=== PATIENT | male | born 1980 | race Caucasian/White ===

== ENCOUNTER 2019-06-13 00:14 | Emergency (ER) | payer SELFPAY ==
[2019-06-13 00:55] LABS: Protime INR 0.96
[2019-06-13 00:56] LABS: Absolute Lymphocytes (CBC) 1.8 K/uL (0.7-4.9); Basophils % 0.3 % (0-1.3); Hematocrit 50.1 % (39.6-49.0); Lymphocytes % 17.7 % (15.3-44.8); MPV 7.6 fL (7.6-11.3)
[2019-06-13 01:12] LABS: ALT/SGPT 34 U/L (12-78); AST/SGOT 25 U/L (15-37); Albumin 4.1 g/dL (3.4-5.0); Alkaline Phosphatase 93 U/L (45-117); BUN Blood Urea Nitrogen 7 mg/dL (7-18); Bicarbonate 25 mmol/L (21-32); Bilirubin Direct 0.2 mg/dL (0-0.2); Bilirubin Total 0.5 mg/dL (0.2-1.0); Glucose Level 98 mg/dL (74-106); Magnesium 2.1 mg/dL (1.8-2.4); NT PRO-BNP 20 pg/mL (<125); Potassium 3.5 mmol/L (3.5-5.1); Protein, Total 8.2 g/dL (6.4-8.2); Sodium Level 138 mmol/L (136-145); Troponin (Emerg Dept Use Only) < 0.02 ng/mL (0.0-0.045)
[2019-06-13] MEDS ORDERED: KETOROLAC 30 MG/ML INJ ONE (01:24)
[2019-06-13 02:36] LABS: Barbiturates NEGATIVE (NEGATIVE); Benzodiazepines NEGATIVE (NEGATIVE); Cocaine NEGATIVE (NEGATIVE); METHAMPHETAM POSITIVE (NEGATIVE); Methadone NEGATIVE (NEGATIVE); Opiates NEGATIVE (NEGATIVE); Phencyclidine NEGATIVE (NEGATIVE); THC Cannibis NEGATIVE (NEGATIVE)
[2019-06-13 03:46] LABS: Urine Blood NEGATIVE (NEG); Urine Glucose NEGATIVE (NEG); Urine Protein NEGATIVE (NEG); Urine Specific Gravity 1.015 (1.005-1.030)
--- NOTE | 2019-06-13 04:40 | ER ---
Nurse's Notes [facility] Name: Rico Spain Sr Age: 39 yrs Sex: Male : 1980 Arrival Date: 06/13/2019 Time: 00:15 Bed 18 Private MD: Diagnosis: Other chest pain Presentation: 06/12 00:16 Chief complaint: Patient states: Reports CP and SOB for the past 24 hours. States "I ea feel like it might be my anxiety". Coronavirus screen: The patient has NOT traveled to a country currently being monitored by the [facility] within the last 14 days. Ebola Screen: No symptoms or risks identified at this time. Initial Sepsis Screen: Does the patient meet any 2 criteria? HR > 90 bpm. Does the patient have a suspected source of infection? No. Patient's initial sepsis screen is negative. Risk Assessment: Do you want to hurt yourself or someone else? Patient reports no desire to harm self or others. 00:16 Method Of Arrival: EMS: [facility] ea 00:16 Acuity: CONNOR 3 ea Triage Assessment: 00:50 General: Appears in no apparent distress. Behavior is anxious. Pain: Complains of pain ea in chest. Neuro: Level of Consciousness is awake, alert, obeys commands, Oriented to person, place, time, situation. Cardiovascular: Patient's skin is warm and dry. Respiratory: Airway is patent Respiratory effort is even, unlabored, Respiratory pattern is regular, symmetrical. Derm: Skin is pink, warm \\T\\ dry. Historical: - Home Meds: 00:48 Wellbutrin 100 mg Oral tab 1 tab 3 times per day [Active]; ea - PMHx: 00:48 Hypertension; Anxiety; ADD/ADHD; ea - PSHx: 00:48 Hernia repair; pins and plate in right clavicle; ea - Immunization history:: Adult Immunizations up to date. - Social history:: Smoking status: Patient reports the use of cigarette tobacco products, smokes one-half pack cigarettes per day. Screenin:29 Abuse screen: Denies threats or abuse. Nutritional screening: No deficits noted. ea Tuberculosis screening: No symptoms or risk factors identified. Fall Risk None identified. Assessment: 00:52 Reassessment: see triage assessment. ea 01:00 Reassessment: Patient and/or family updated on plan of care and expected duration. Pain ea level reassessed. Patient is alert, oriented x 3, equal unlabored respirations, skin warm/dry/pink. 02:28 Reassessment: Patient and/or family updated on plan of care and expected duration. Pain ea level reassessed. Patient is alert, oriented x 3, equal unlabored respirations, skin warm/dry/pink. 03:30 Reassessment: Patient and/or family updated on plan of care and expected duration. Pain ea level reassessed. Patient is alert, oriented x 3, equal unlabored respirations, skin warm/dry/pink. 04:37 Reassessment: Patient and/or family updated on plan of care and expected duration. Pain ea level reassessed. Patient is alert, oriented x 3, equal unlabored respirations, skin warm/dry/pink. Vital Signs: 00:16 BP 131 / 89 LA Sitting (auto/reg); Pulse 101 MON; Pulse Ox 100% on R/A; Pain 5/10; mb4 00:51 Temp 97.8; ea 00:51 Weight 77.11 kg; Height 5 ft. 7 in. (170.18 cm); ea 01:15 BP 134 / 78; Pulse 96; Resp 17; Pulse Ox 99% on R/A; ea 02:15 BP 119 / 85; Pulse 87; Resp 16; Pulse Ox 99% on R/A; ea 03:30 BP 127 / 90; Pulse 74; Resp 18; Pulse Ox 98% on R/A; ea 04:41 BP 123 / 74; Pulse 73; Resp 18; Pulse Ox 98% ; ea 00:51 Body Mass Index 26.63 (77.11 kg, 170.18 cm) ea ED Course: 00:15 Patient arrived in ED. cf2 00:15 Bed in low position. Call light in reach. Side rails up X 1. warpman on. Pulse mb4 ox on. NIBP on. 00:19 Patient has correct armband on for positive identification. mb4 00:20 Gregory Escobar MD is Attending Physician. tw4 00:31 Triage completed. ea 00:40 Inserted saline lock: 20 gauge in right antecubital area, using aseptic technique. ea Blood collected. 00:49 Arm band placed on right wrist. Patient placed in an exam room, on a stretcher, on ea pulse oximetry. EKG completed in triage. Results shown to . 00:49 Patient maintains SpO2 saturation greater than 95% on room air. ea 01:18 Elaine Leon, RN is Primary Nurse. ea 02:32 No provider procedures requiring assistance completed. ea 05:00 IV discontinued, intact, bleeding controlled, No redness/swelling at site. Pressure ea dressing applied. 07:19 XRAY Chest (1 view) In Process Unspecified. EDMS Administered Medications: 01:23 Drug: TORadol 30 mg Route: IVP; Site: right antecubital; ea 01:57 Follow up: Response: No adverse reaction ea Outcome: 04:39 Discharge ordered by MD. greer 05:00 Discharged to home ambulatory. ea 05:00 Condition: stable 05:00 Discharge instructions given to patient, Instructed on discharge instructions, follow up and referral plans. Demonstrated understanding of instructions, follow-up care. 05:18 Patient left the ED. ea Signatures: Dispatcher [employer] EDElaine Jara RN RN ea Wadley, Terrence, MD MD tw4 Karol Black 4 Monique Lincoln cf2 Corrections: (The following items were deleted from the chart) 05:27 05:00 Discharge instructions given to patient, ea marlene
--- NOTE | 2019-06-13 04:40 | EDPHYS ---
Physician Documentation [facility] Name: Rico Spain Sr Age: 39 yrs Sex: Male : 1980 Arrival Date: 06/13/2019 Time: 00:15 Bed 18 Private MD: ED Physician Gregory Escobar HPI: 06/12 01:21 This 39 yrs old Male presents to ER via EMS with complaints of Chest Pain. tw4 01:21 The patient or guardian reports chest pain that is located primarily in the anterior tw4 chest wall, right. Onset: just prior to arrival, 2 hour(s) ago. The pain does not radiate. Associated signs and symptoms: The patient has no apparent associated signs or symptoms. The chest pain is described as dull. Duration: The patient or guardian reports a single episode. Severity of pain: At its worst the pain was mild in the emergency department the pain is unchanged. The patient has not experienced similar symptoms in the past. Historical: - Home Meds: 00:48 Wellbutrin 100 mg Oral tab 1 tab 3 times per day [Active]; ea - PMHx: 00:48 Hypertension; Anxiety; ADD/ADHD; ea - PSHx: 00:48 Hernia repair; pins and plate in right clavicle; ea - Immunization history:: Adult Immunizations up to date. - Social history:: Smoking status: Patient reports the use of cigarette tobacco products, smokes one-half pack cigarettes per day. ROS: 01:21 Constitutional: Negative for fever, chills, and weight loss, Eyes: Negative for injury, tw4 pain, redness, and discharge, Neck: Negative for injury, pain, and swelling, Abdomen/GI: Negative for abdominal pain, nausea, vomiting, diarrhea, and constipation, Back: Negative for injury and pain, MS/Extremity: Negative for injury and deformity, Skin: Negative for injury, rash, and discoloration, Neuro: Negative for headache, weakness, numbness, tingling, and seizure. 01:21 Cardiovascular: Positive for chest pain, Negative for edema, orthopnea, palpitations, paroxysmal nocturnal dyspnea. Exam: 01:21 Constitutional: This is a well developed, well nourished patient who is awake, alert, tw4 and in no acute distress. Head/Face: Normocephalic, atraumatic. Chest/axilla: Normal chest wall appearance and motion. Nontender with no deformity. No lesions are appreciated. Cardiovascular: Regular rate and rhythm with a normal S1 and S2. No gallops, murmurs, or rubs. Normal PMI, no JVD. No pulse deficits. Respiratory: Lungs have equal breath sounds bilaterally, clear to auscultation and percussion. No rales, rhonchi or wheezes noted. No increased work of breathing, no retractions or nasal flaring. Abdomen/GI: Soft, non-tender, with normal bowel sounds. No distension or tympany. No guarding or rebound. No evidence of tenderness throughout. Back: No spinal tenderness. No costovertebral tenderness. Full range of motion. MS/ Extremity: Pulses equal, no cyanosis. Neurovascular intact. Full, normal range of motion. Neuro: Awake and alert, GCS 15, oriented to person, place, time, and situation. Cranial nerves II-XII grossly intact. Motor strength 5/5 in all extremities. Sensory grossly intact. Cerebellar exam normal. Normal gait. Vital Signs: 00:16 BP 131 / 89 LA Sitting (auto/reg); Pulse 101 MON; Pulse Ox 100% on R/A; Pain 5/10; mb4 00:51 Temp 97.8; ea 00:51 Weight 77.11 kg; Height 5 ft. 7 in. (170.18 cm); ea 01:15 BP 134 / 78; Pulse 96; Resp 17; Pulse Ox 99% on R/A; ea 02:15 BP 119 / 85; Pulse 87; Resp 16; Pulse Ox 99% on R/A; ea 03:30 BP 127 / 90; Pulse 74; Resp 18; Pulse Ox 98% on R/A; ea 04:41 BP 123 / 74; Pulse 73; Resp 18; Pulse Ox 98% ; ea 00:51 Body Mass Index 26.63 (77.11 kg, 170.18 cm) ea MDM: 00:21 Patient medically screened. 06/12 00:21 Order name: Basic Metabolic Panel; Complete Time: 02:32 06/12 02:33 Interpretation: Within normal limits. 16 00:21 Order name: CBC with Diff; Complete Time: 02:32 03 02:33 Interpretation: Normal except: HCT 50.1; MCV 92.8; HUI% 75.3. 06/12 00:21 Order name: LFT's; Complete Time: 02:32 06/12 02:33 Interpretation: Normal except: GLOB 4.1; A/G 1.0. 06/12 00:21 Order name: Magnesium; Complete Time: 02:32 06/12 02:33 Interpretation: Within normal limits: MG 2.1. 06/12 00:21 Order name: NT PRO-BNP; Complete Time: 02:32 06/12 02:33 Interpretation: Within normal limits: NT PRO-BNP 20. 06/12 00:21 Order name: PT-INR; Complete Time: 02:32 06/12 02:33 Interpretation: Within normal limits: PT 11.4. 06/12 00:21 Order name: Troponin (emerg Dept Use Only); Complete Time: 02:32 06/12 02:33 Interpretation: Within normal limits: TROPED < 0.02. 06/12 00:21 Order name: XRAY Chest (1 view) 06/12 00:21 Order name: EKG; Complete Time: 00:23 06/12 00:21 Order name: Cardiac monitoring; Complete Time: 01:34 06/12 00:21 Order name: Urine Drug Screen; Complete Time: 02:49 06/12 02:49 Interpretation: Abnormal: METHAMPHETAMINE POSITIVE. 06/12 02:09 Order name: Urine Dipstick--Ancillary (enter results) 2 06/12 03:02 Order name: Troponin (emerg Dept Use Only) 06/12 00:21 Order name: EKG - Nurse/Tech; Complete Time: 02:23 06/12 00:21 Order name: IV Saline Lock; Complete Time: 02:23 06/12 00:21 Order name: Labs collected and sent; Complete Time: 02:23 06/12 00:21 Order name: O2 Per Protocol; Complete Time: 02:24 06/12 00:21 Order name: O2 Sat Monitoring; Complete Time: 02:24 4 EC:34 Rate is 91 beats/min. Rhythm is regular. QRS [place] is Normal. TX interval is normal. QRS tw4 interval is normal. QT interval is normal. No Q waves. T waves are Inverted in lead V6. No ST changes noted. Clinical impression: NSR w/ Non-specific ST/T Changes. Interpreted by me. Administered Medications: 01:23 Drug: TORadol 30 mg Route: IVP; Site: right antecubital; ea 01:57 Follow up: Response: No adverse reaction ea Disposition: 06/13/19 04:39 Discharged to Home. Impression: Other chest pain. - Condition is Stable. - Discharge Instructions: Nonspecific Chest Pain. - Medication Reconciliation Form, Thank You Letter, Antibiotic Education, Prescription Opioid Use form. - Follow up: Private Physician; When: Upon discharge from the Emergency Department; Reason: Recheck today's complaints, Continuance of care, Re-evaluation by your physician. - Problem is new. - Symptoms have improved. Signatures: Dispatcher [employer] Elaine De Los Santos RN RN ea Wadley, Terrence, MD MD tw4 Corrections: (The following items were deleted from the chart) 05:18 04:39 06/13/2019 04:39 Discharged to Home. Impression: Other chest pain. Condition is ea Stable. Forms are Medication Reconciliation Form, Thank You Letter, Antibiotic Education, Prescription Opioid Use. Follow up: Private Physician; When: Upon discharge from the Emergency Department; Reason: Recheck today's complaints, Continuance of care, Re-evaluation by your physician. Problem is new. Symptoms have improved. tw4
[2019-06-13 05:28] VITALS: TEMP 97.8
[2019-06-13 05:32] VITALS: O2SAT 98
[2019-06-13 05:33] VITALS: BP 123/74
--- NOTE | 2019-06-13 08:36 | RAD REPORT ---
EXAM DESCRIPTION: RAD - Chest Single View - 06/13/2019 7:18 am CLINICAL HISTORY: CHEST PAIN Chest pain. COMPARISON: Chest Single View dated 11/26/2015; ABDOMEN 1 VIEW KUB dated 08/19/2011; CHEST PA AND LAT 2 VIEW dated 08/19/2011; CHEST PA AND LAT 2 VIEW dated 06/21/2007 FINDINGS: Portable technique limits examination quality. The lungs are grossly clear. The heart is normal in size. Hardware is present right clavicle. IMPRESSION: No acute intrathoracic process suspected.
--- NOTE | 2019-06-13 09:14 | EKG ---
Test Date: 2019-06-13 Test Time: 00:33:43 Barrel Roller: SHARONDA MEASUREMENT RESULTS: Intervals: Rate: 91 NM: 174 QRSD: 90 QT: 350 QTc: 430 Cove: P: 64 NM: 174 QRS: 77 T: 56 INTERPRETIVE STATEMENTS: Normal sinus rhythm Nonspecific T wave abnormality Abnormal ECG Compared to ECG 11/26/2015 18:41:25 T-wave abnormality now present Sinus arrhythmia no longer present Electronically Signed On 06-13-19 09:13:51 CDT by Jose Ruiz
== END 2019-06-13 05:18 | disposition home or self-care (01) ==
LOC: ER 00:14
DX: R07.89 Other chest pain (principal); I10 Essential (primary) hypertension; F41.9 Anxiety disorder, unspecified; F17.210 Nicotine dependence, cigarettes, uncomplicated
CPT/HCPCS: 36415; 71045; 80048; 80076; 80307; 81003; 83735; 83880; 84484; 85025; 85610; 93005; 96374; 99285